=== PATIENT | male | born 1995 ===

== ENCOUNTER 2017-11-09 10:48 | Emergency (ER) | payer SELFPAY ==
[2017-11-09 10:58] VITALS: BMI 21.9
[2017-11-09 11:00] VITALS: BP 121/72; PULSE 64; RESP 17; TEMP 98.8; O2SAT 100
[2017-11-09] MEDS ORDERED: Naproxen 550 mg Tab PO STA (11:29)
[2017-11-09] MEDS ORDERED: Tmp-Smz 800 mg-160 mg DS Tab PO STA (11:30)
--- NOTE | 2017-11-09 11:35 | C.PDOC ---
History Of Present Illness 21 year old male presents to the ED complaining of pain and swelling to the right posterior thigh since yesterday. He notes the area began draining yelolow discharge yesterday. Patient denies fever or chills. Time Seen by Provider: 11/09/17 11:05 Chief Complaint (Nursing): Abnormal Skin Integrity History Per: Patient History/Exam Limitations: no limitations Onset/Duration Of Symptoms: Days Current Symptoms Are (Timing): Still Present Quality Of Symptoms: Painful Severity: Mild Past Medical History Reviewed: Historical Data, Nursing Documentation, Vital Signs Vital Signs: Last Vital Signs Temp 98.8 F 11/09/17 10:58 Pulse 64 11/09/17 10:58 Resp 17 11/09/17 10:58 BP 121/72 11/09/17 10:58 Pulse Ox 100 11/09/17 12:34 - Medical History PMH: No Chronic Diseases Surgical History: No Surg Hx Family History: States: No Known Family Hx - Social History Hx Alcohol Use: Yes Hx Substance Use: No Review Of Systems Constitutional: Negative for: Fever, Chills Skin: Positive for: Other (swelling and pain to right thigh) Neurological: Negative for: Weakness Physical Exam - Physical Exam Appears: Well, Non-toxic, No Acute Distress Skin: Warm, Dry, Other (Right posterior thigh: approx 2.5 cm indurated abscess with central draining pustule, area is erythematous, TTP, with mild fluctuance at the center) Eye(s): bilateral: Normal Inspection Oral Mucosa: Moist Neck: Supple Cardiovascular: Rhythm Regular Respiratory: Normal Breath Sounds, No Rales, No Rhonchi, No Wheezing Extremity: No Pedal Edema, No Calf Tenderness Extremity: Bilateral: Atraumatic, Normal ROM Neurological/Psych: Oriented x3 ED Course And Treatment O2 Sat by Pulse Oximetry: 100 (RA) Pulse Ox Interpretation: Normal Progress Note: Patient offered I&D, however he refused it at this time. Patient given PO Naprosynm Bactrim and Keflex. He was instructed to apply warm compresses and given Rxs for antibiotics. He understands he should return to ED if symptoms worsen. Disposition Counseled Patient/Family Regarding: Diagnosis, Need For Followup, Rx Given - Disposition Referrals: [facility] [Outside] Disposition: HOME/ ROUTINE Disposition Time: 11:35 Condition: STABLE Additional Instructions: FOLLOW UP WITH YOUR DOCTOR/CLINIC IN 1-2 DAYS USE MEDICATIONS DIRECTED APPLY WARM COMPRESSES TO AREA RETURN TO EMERGENCY ROOM IF SYMPTOMS WORSEN SEGUIMIENTO CON CALIX MDICO / JUANA EN 1-2 MERCHANT USE MEDICAMENTOS SEGN LO INDICADO APLICA COMPRESAS CALIENTES AL DELIA REGRESE AL NELSY DE EMERGENCIA SI LOS SNTOMAS EMPEORAN Prescriptions: Cephalexin [Keflex] 500 mg PO BID #14 capsule Naproxen 375 mg PO BID PRN #20 tablet PRN Reason: pain Sulfamethoxazole/Trimethoprim [Bactrim DS 800 mg-160 mg] 1 tab PO BID #14 tab Instructions: Boil (DC) Forms: [employer] (Japanese) Print Language: PASHTO - POA Present On Arrival: None - Clinical Impression Clinical Impression: Abscess of right thigh - Scribe Statement The provider has reviewed the documentation as recorded by the Scribe (Neeru Peacock) Provider Attestation: All medical record entries made by the Scribe were at my direction and personally dictated by me. I have reviewed the chart and agree that the record accurately reflects my personal performance of the history, physical exam, medical decision making, and the department course for this patient. I have also personally directed, reviewed, and agree with the discharge instructions and disposition.
[2017-11-09] MEDS ORDERED: Naproxen 550 mg Tab PO ONE (11:43)
[2017-11-09] MEDS ORDERED: Tmp-Smz 800 mg-160 mg DS Tab ONE (11:44)
== END 2017-11-09 11:48 | disposition home or self-care (01) ==
LOC: C.ER 10:48
DX: L02.415 Cutaneous abscess of right lower limb (principal)

== ENCOUNTER 2018-07-08 03:08 | Emergency (ER) | payer SELFPAY ==
[2018-07-08 03:08] VITALS: BMI 21.9
[2018-07-08 03:24] VITALS: O2SAT 99
--- NOTE | 2018-07-08 03:37 | C.PDOC ---
History Of Present Illness 22 year old male with no significant past medical history presents to the emergency department complaining of right 3rd digit pain status post injury at 8 p.m. This evening. Patient states he got his finger stuck in a window causing a crush injury to his right third digit nail. Patient states that the nail has turned black and he has had worsening pain to the area. Patient took ibuprofen for pain at 11 p.m. without relief. Unknown last tetanus. Denies numbness, paresthesia, weakness, injury elsewhere, or any other associated symptoms. Time Seen by Provider: 07/08/18 03:36 Chief Complaint (Nursing): Upper Extremity Problem/Injury Past Medical History Vital Signs: Last Vital Signs Temp 97.6 F 07/08/18 03:19 Pulse 78 07/08/18 03:19 Resp 20 07/08/18 03:19 BP 126/76 07/08/18 03:19 Pulse Ox 99 07/08/18 03:19 Family History: States: No Known Family Hx - Social History Hx Alcohol Use: Yes Hx Substance Use: No Review Of Systems Constitutional: Negative for: Fever, Chills Eyes: Negative for: Vision Change ENT: Negative for: Nose Congestion, Throat Pain Cardiovascular: Negative for: Chest Pain, Palpitations, Light Headedness Respiratory: Negative for: Cough, Shortness of Breath Gastrointestinal: Negative for: Nausea, Vomiting Genitourinary: Negative for: Dysuria, Frequency Musculoskeletal: Positive for: Hand Pain (right 3rd digit ). Negative for: Back Pain Skin: Negative for: Rash Neurological: Negative for: Weakness, Numbness, Headache, Dizziness Physical Exam - Physical Exam Appears: Well, Non-toxic, No Acute Distress Skin: Normal Color, Warm, Dry Head: Atraumatic, Normacephalic Eye(s): bilateral: Normal Inspection, PERRL, EOMI Nose: Normal Oral Mucosa: Moist Throat: Normal Neck: Normal, Normal ROM, Supple Cardiovascular: Rhythm Regular Respiratory: Normal Breath Sounds Extremity: Normal ROM, Tenderness (right hand 3rd digit distal phalanx), Capillary Refill (<2s), No Deformity, Swelling (right hand 3rd digit distal phalanx), Other (right hand 3rd digit subungal hematoma involving entire nail; small skin avulsion right hand 4th digit, no active bleeding) Extremity: Bilateral: Normal ROM Pulses: Left Radial: Normal, Right Radial: Normal Neurological/Psych: Oriented x3, Normal Speech, Normal Motor, Normal Sensation Gait: Steady ED Course And Treatment O2 Sat by Pulse Oximetry: 99 Procedure: Blank - Time Time Performed: 05:00 - Time Out Time Out: Side verified, Site verified, Patient ID confirmed, Sterile procedures obs. - Procedure Procedure:: Nail Trepination via Needle Bore - 3 holes - Consent obtained: Consent obtained: Verbal - Performed by: Performed by:: Mid-level provider - Indications Indications(s):: Subungal Hematoma - Contraindications: Contraindications:: None - Anesthetic Technique Anesthetic Technique: Regional block (right 3rd digit block) - Topical: Local/Regional Anesthetic:: Lidocaine 1% - Regional Nerve Block Regional Nerve Block:: Right, Digital - Patient Position Patient Position:: Sitting - Location Location: Right Finger:: Middle - Needle Size Needle Size:: 19 - Result Result: Successful - Post-Procedure Post-procedure:: Dressing applied, Neurovascular status nml, Vital signs stable - Post-Procedural O2 Sat Post-procedural O2 sat %:: 99 - Complications Complications:: Other (none) - Patient Tolerated Procedure Patient Tolerated Procedure:: Well Medical Decision Making Medical Decision Making: Initial Plan: Right hand XR Nail trepination Tdap Xray read by me as no acute fracture or dislocation Nail trepination over subungal hematoma performed by me, see procedure note. Pt tolerated well without complication. Nail covered with bacitracin and sterile dressing. Right hand 3rd digit splinted by me. Neurovascular exam remains unchanged after splint. Pt prescribed prophylactic keflex, first dose here. Pt advised to followup with hand doctor within 1-2 days. Wound care instructions discussed, and pt told that nail will most likely fall off on its own. Pt verbalized understanding, states he will followup as instructed. Diagnostic testing results and plan of care discussed with patient. Strict instructions given regarding prescription use, importance of followup, and signs /symptoms to return to ER including numbness, weakness, paresthesia, signs of wound infection or any other new/worsening symptoms. Pt verbalized understanding of discussion. Patient is A&Ox3, ambulating with steady gait, with vital signs stable for discharge. Disposition - Disposition Referrals: Samuel Green MD [Staff Provider] - Disposition: HOME/ ROUTINE Disposition Time: 06:10 Condition: IMPROVED Additional Instructions: Keflex cada 6 horas kamille 7 al Lo ms probable es que la ua se caiga con el tiempo por s carlos, no la quite. Mantener el vendaje y secar kamille 48 horas. Despus de 48 horas, retire el apsito, aplique bacitracina y vuelva a aplicar el apsito diariamente. Mantenga la frula hasta el seguimiento manual Seguimiento con mano mdico dentro de 2 al. Seguimiento con primaria dentro de 2 al. Regrese a la pratik de emergencias con cualquier sntoma nuevo o que empeore Prescriptions: Bacitracin OINT 1 applic TD DAILY #1 tube Cephalexin [Keflex] 500 mg PO QID 7 Days #28 capsule Instructions: Nail Avulsion Forms: Gen Discharge Inst Nicaraguan, [facility] (Nicaraguan), Work Excuse Print Language: TAJIK - Clinical Impression Clinical Impression: Subungual hematoma, Hand injury
[2018-07-08] MEDS ORDERED: Tdap Vaccine 0.5 ml Vial (10-64 yrs) IM ONE ×2 (04:26→04:49)
[2018-07-08] MEDS ORDERED: Lidocaine 1% Inj (20ml) INFIL ONE (04:45)
[2018-07-08] MEDS ORDERED: Lidocaine Hydrochloride 5 ML INJ ONE (04:49)
[2018-07-08] MEDS ORDERED: Bacitracin 500 Units/gm Oint Foilpak UD TOP ONE (05:26)
[2018-07-08] MEDS ORDERED: Bacitracin 500 Units/gm Oint Foilpak UD ONE (05:32)
[2018-07-08 06:21] VITALS: BP 127/78; PULSE 89; RESP 18; TEMP 98.3
--- NOTE | 2018-07-08 13:25 | RAD ---
Date of service: 07/08/2018 PROCEDURE: Right middle finger radiographs. HISTORY: 3rd digit crush injury COMPARISON: None. TECHNIQUE: AP radiograph of the right hand, as well as spot oblique and lateral images of right middle finger were obtained. FINDINGS: RIGHT MIDDLE FINGER: Right middle finger normal, without fracture of focal lesion. Remainder of the right hand (as seen on the AP view) grossly unremarkable. JOINTS: Normal. SOFT TISSUES: Normal. OTHER FINDINGS: None. IMPRESSION: No demonstrated fracture or dislocation.
== END 2018-07-08 06:19 | disposition home or self-care (01) ==
LOC: C.ER 03:08
DX: S60.131A Contusion of right middle finger with damage to nail, initial encounter (principal); S61.304A Unspecified open wound of right ring finger with damage to nail, initial encounter; W23.0XXA Caught, crushed, jammed, or pinched between moving objects, initial encounter

== ENCOUNTER 2018-10-15 19:19 | Emergency (ER) | payer OTHER ==
[2018-10-15 19:19] VITALS: BMI 21.9
[2018-10-15 19:36] VITALS: BP 121/76; PULSE 80; TEMP 97.6; O2SAT 100
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
[2018-10-15 20:19] VITALS: RESP 16
== END 2018-10-15 20:18 | disposition home or self-care (01) ==
LOC: SUPCPDRO 19:19 → C.ER 19:19
DX: S39.012A Strain of muscle, fascia and tendon of lower back, initial encounter (principal); V49.49XA Driver injured in collision with other motor vehicles in traffic accident, initial encounter; Y92.410 Unspecified street and highway as the place of occurrence of the external cause